=== PATIENT | female | born 1965 | race Two or more races ===

== ENCOUNTER 2024-11-28 11:59 | Emergency (ER) | payer MEDICAID, SELFPAY ==
[2024-11-28 12:58] VITALS: BP 163/84; PULSE 61; RESP 17; TEMP 36.7; O2SAT 97; BMI 26.6
--- NOTE | 2024-11-28 13:05 | XR_ITS ---
Examination: CT abdomen and pelvis without contrast. Coronal 3-D reconstructions. Sagittal 2-D reconstructions. Date and time of exam: November 28, 2024, 1111 hours INDICATIONS: Left-sided abdominal pain radiating to the lower back beginning 1 day ago CTDI: vol (mGy): 7.84 DLP: (mGycm): 440 Technique: Axial images of the abdomen have been obtained, 3 mm slice thickness Intravenous contrast material has not been administered. Low dose protocols were performed. One or more of the following dose reduction techniques were used; automated exposure control, adjustment of the mA and/or KV according to patient size, use of iterative reconstruction technique. Findings: No visualized liver or splenic lesion No gallstones No pancreatic or adrenal mass No renal or ureteral calculi, no hydronephrosis Abdominal aortic calcification no aneurysmal dilatation 15 mm fat-containing umbilical hernia No bowel obstruction No pericecal inflammatory change Normal appendix No diverticulitis Contracted urinary bladder Retroverted uterus, no pelvic mass Grade 1 anterolisthesis L4 on L3 Moderate disc narrowing L4-L5 L5-S1 4 mm central left paracentral disc bulge displacing the left S1 nerve root L4-L5 3 mm central lumbar disc bulge L3-L4 left neural foraminal stenosis secondary to the anterolisthesis with mild left L3 ganglionic compression IMPRESSION: Normal appendix 15 mm fat-containing umbilical hernia No bowel obstruction or diverticulitis L5-S1 4 mm central left paracentral disc bulge displacing the left S1 nerve root L4-L5 3 mm central lumbar disc bulge L3-L4 left neural foraminal stenosis secondary to the anterolisthesis with mild left L3 ganglionic compression, consider elective MRI lumbar spine without contrast follow-up
--- NOTE | 2024-11-28 13:05 | EKG_ITS ---
[facility] Test Date: 2024-11-28 Pat Name: KRISTEN JACOB Department: Room: - Gender: Female Telecom Assistant: : 1965 Requested By: Jhon Ramos (DEMOND) Order Number: [id number] Reading MD: Jhon Ramos (POWER PROJECT MANAGER) Measurements Intervals [place] Rate: 64 P: 49 [place]: 153 QRS: -25 QRSD: 84 T: 33 QT: 413 QTc: 428 Interpretive Statements SINUS RHYTHM BORDERLINE LEFT AXIS DEVIATION [QRS AXIS < -20] MODERATE VOLTAGE CRITERIA FOR LVH, CONSIDER NORMAL VARIANT [MEETS CRITERIA IN ONE OF: R(aVL), S(V1), R(V5), R(V5/V6)+S(V1)] Compared to ECG 08/18/2019 13:15:24 T-wave abnormality no longer present /store/S0/[id number].pdf
--- NOTE | 2024-11-28 13:05 | PD.EDRME ---
Rapid Medical Screening Exam [facility] Arrival date/time: 11/28/24 11:59 59-year-old female presents to the emergency department for complaints of left upper abdominal pain ongoing since yesterday Chief Complaint: Abdominal Pain Vital signs: Vital Signs Temperature 98.0 F 11/28/24 12:58 Pulse Rate 61 11/28/24 12:58 Respiratory Rate 17 11/28/24 12:58 Blood Pressure 163/84 H 11/28/24 12:58 Pulse Oximetry (%) 97 11/28/24 12:58 Oxygen Delivery Method Room Air 11/28/24 12:58
[2024-11-28 13:31] LABS: Basophils # (Auto) 0.1 Thou/mm3 (0.0-0.2); Basophils % (Auto) 1 % (0-2.5); Eosinophils # (Auto) 0.2 Thou/mm3 (0.0-0.5); Eosinophils % (Auto) 2 % (0-10); Hematocrit 40.6 % (36.0-46.0); Hemoglobin 13.4 g/dL (12.0-16.0); Immature Granulocytes Auto 0.02 Thou/mm3 (0.00-0.00); Lymphocytes # (Auto) 2.1 Thou/mm3 (1.0-4.8); Lymphocytes % (Auto) 24 % (10-50); Mean Corpuscular HGB Conc 33.0 g/dl (31.0-37.0); Mean Corpuscular Hemoglobin 28.5 pg (25.0-35.0); Mean Corpuscular Volume 86 fL (80-100); Monocytes # (Auto) 0.4 Thou/mm3 (0.0-0.8); Monocytes % (Auto) 5 % (0-12); Neutrophils # (Auto) 6.1 Thou/mm3 (1.8-7.7); Neutrophils % (Auto) 69 % (37-80); Nucleated Red Blood Cell # 0.00 Thou/mm3 (0.00-0.00); Nucleated Red Blood Cell % 0 /100 WBC (0); Platelet Count 217 Thou/mm3 (140-440); RDW Standard Deviation 40.5 fL (36.4-46.3); Red Blood Count 4.70 Miln/mm3 (4.00-5.20); White Blood Count 8.8 Thou/mm3 (3.6-11.0)
[2024-11-28 13:47] LABS: Alanine Aminotransferase 15 U/L (10-49); Albumin, Serum 4.8 gm/dL (3.4-4.8); Albumin/Globulin Ratio 1.8 (1.2-2.2); Alkaline Phosphatase 128 U/L (46-116); Anion Gap 10 (7-16); Aspartate Amino Transferase 18 U/L (0-34); BUN/Creatinine Ratio 13 Ratio (12-20); Bilirubin,Total 0.5 mg/dL (0.3-1.2); Blood Urea Nitrogen 10 mg/dL (9-23); Calcium 9.4 mg/dL (8.3-10.6); Calcium (Corrected) 9.4 mg/dL (8.5-10.1); Carbon Dioxide 26.8 mMol/L (20.0-31.0); Chloride 106 mMol/L (98-107); Creatinine (Component) 0.8 mg/dL (0.6-1.3); Estimated Creatinine Clearance 77.3 mL/min (>60); Globulin 2.6 gm/dL (2.3-3.5); Glucose 105 mg/dL (74-106); Lipase 39 U/L (12-53); Osmolality,Calculated 283 (275-295); Potassium 3.9 mMol/L (3.4-5.1); Sodium 143 mMol/L (136-145); Total Protein 7.4 gm/dL (5.7-8.2); Troponin I < 0.002 ng/mL (0.0-0.045); eGFR > 60 See Note
[2024-11-28 14:02] LABS: Collection Type, Urine Clean Catch
[2024-11-28 14:20] LABS: Bilirubin,Urine Negative (Negative); Blood,Urine Negative (Negative); Clarity,Urine Clear (Clear/Hazy); Color,Urine Yellow (Lt Yel-Yel); Culture Indicated,Urine Not Indicated; Glucose, Urine Negative (Negative); Ketones,Urine Trace (Negative); Leukocyte Esterase,Urine Positive (Negative); Nitrite,Urine Negative (Negative); PH,Urine 6.0 (5.0-7.0); Protein,Urine Trace (Neg - Trace); RBC,Urine 2 /hpf (0-3); Specific Gravity,Urine 1.032 (1.001-1.035); Squamous Epithelial Cell,Urine 1 /hpf (0-5); Urobilinogen,Urine Negative mg/dL (0.0-1.0); WBC,Urine 3 /hpf (0-5)
--- NOTE | 2024-11-28 16:57 | EDNOTE_ITS ---
ED Abdominal Pain RME/HPI General Chief Complaint: Abdominal Pain Stated complaint: Left upper abdominal pain X 2 days Time seen by provider: 11/28/24 15:44 Arrival date/time: 11/28/24 11:59 Source: patient Mode of arrival: ambulatory Limitations: no limitations RME / HPI RME / HPI narrative: 11/28/24 11:59 59-year-old female presents to the emergency department for complaints of left upper abdominal pain ongoing since yesterday Dr. Omalley evaluation. Patient is a 59-year-old female with medical history notable for hyperlipidemia send Emergency Department concerns for abdominal pain and chest pain. Symptoms have been present for over a day. Denies fevers, chills, nausea, vomiting, cough runny nose, dysuria, hematuria, melena, bloody stools. No drugs no alcohol no smoking. Patient does not take any medications. Pain in her chest is below her left breast Related Data Home Medications ?Medication ?Instructions ?Recorded ?Confirmed Atorvastatin Calcium 10 mg PO HS ##30 06/10/16 Allergies Allergy/AdvReac Type Severity Reaction Status Date / Time NKA* Allergy Uncoded 11/28/24 12:04 ED Exam General Limitations: Present no limitations General appearance: Present alert and in no apparent distress Head Head exam: Present atraumatic and normocephalic Eye Eye exam: Present normal appearance and PERRL ENT ENT exam: Present normal exam and normal oropharynx Neck Neck exam: Present normal inspection and full ROM Chest Chest inspection: Present normal inspection; Absent symmetric chest wall rise Respiratory Respiratory exam: Present normal lung sounds bilaterally; Absent respiratory distress Cardiovascular Cardiovascular exam: Present regular rate and normal rhythm Abdominal Exam Abdominal exam: Present soft; Absent distention, tenderness or guarding Extremities Exam Extremities exam: Present normal inspection Psychiatric Psychiatric exam: Present normal affect Skin Skin exam: Present warm, dry and intact Course Quality Measures none Orders Category Date Time Status EKG (ED ONLY) *Do not use* NOW Care 11/28/24 13:[address] abdomen pelvis wo con Stat Exams 11/28/24 13:05 Completed EKG (ED Only) Stat Exams 11/28/24 13:05 Draft CBC Stat Lab 11/28/24 13:23 Completed Comprehensive Metabolic Panel Stat Lab 11/28/24 13:23 Completed Lipase Stat Lab 11/28/24 13:23 Completed Troponin I Stat Lab 11/28/24 13:23 Completed UA, C/S IF [Urinalysis, C/S if Indicated] Stat Lab 11/28/24 13:56 Completed Urine Culture Stat Lab 11/28/24 17:02 Ordered Vital Signs Vital signs: Vital Signs Temperature 98.0 F 11/28/24 12:58 Pulse Rate 61 11/28/24 12:58 Respiratory Rate 17 11/28/24 12:58 Blood Pressure 163/84 H 11/28/24 12:58 Pulse Oximetry (%) 97 11/28/24 12:58 Oxygen Delivery Method Room Air 11/28/24 12:58 Abdominal Pain MDM MDM Narrative MDM Narrative:: Patient is a 59-year-old female is in the emerged from concerns for abdominal and chest pain. Vital signs and exam as listed. Concern for cholelithiasis, cholecystitis pancreatitis ACS arrhythmia electrolyte abnormality urinary tract infection among others. Prior provider evaluated patient. Ordered labs EKG and CT abdomen pelvis and offered medication for symptom relief. Labs without any acute hematologic or significant metabolic abnormality. Troponin not elevated. EKG performed today at 1316. Notable for sinus rhythm normal intervals, nonspecific T wave changes, not a cardiac alert. Urinalysis nitrate negative, leuk esterase positive, 3 white blood cells, 2 red blood cells, no bacteria. Will send for culture. CT abdomen pelvis without contrast notable for 15 mm fat-containing umbilical hernia, no evidence of acute intra- abdominal pathology. Patient has incidental findings of L5-S1 L4-L5 disc bulges. Patient does not have any evidence of a focal neurodeficit. On reevaluation patient hemodynamically stable not in distress. Symptoms resolved. With regards to patient's chest pain. Patient states that her symptoms have been on and off for over a day. Will discharge to home with close return precautions follow-up with primary doctor as well as recommendation that she gets an appointment to see a support technician that she would benefit from a stress test Patient data External records reviewed:: [facility] previous records Clinical information provided by:: patient Social determinants that could affect healthcare access:: none Patient has the following chronic illnesses:: None How is presenting disease/condition affected by chronic disease/condition?: uneffected by Evaluation data The following diagnostics were reviewed and interpreted by me:: lab results, radiology exam(s) and EKG tracing(s) Lab and/or radiology exams considered but not ordered:: None Interpretation Summary: See MDM Medications / Prescriptions Medications or Prescriptions considered but not ordered:: None Medication administrations:: See above Consultations Consultation(s) initiated? (list below): No Diagnosis Differential diagnosis abdominal pain: other (See MDM) Most likely diagnosis given after review of the tests above:: abdominal pain, chest pain Admission Indicated Admission indicated?: not indicated Admission Request Was there a request for admission?: No Disposition Plan Disposition Plan: Discharge Discharge Attestation Discharge Attestation: The patient and all family members were given an opportunity to ask questions and understood the discharge instructions. Discharge instructions specifically effects, indications for sooner follow up or return to the emergency department, and the expected course of current diagnosis. Patient condition: Stable Discharge Plan Plan Patient Disposition: HOME (Self Care) Prescriptions/Referrals Prescriptions/Med Rec: No Action Atorvastatin Calcium 10 MG tablet 10 mg PO HS Qty: 30 Referrals: No Primary/Family,Physician [Primary Care Provider] - In 1 week Problem List Clinical Impression: Abdominal pain, Chest pain Patient/Caregiver Discharge Instructions Education Materials: Abdominal Pain, ED Chest Pain, Uncertain Cause Additional Instructions: Shanon shant jinny de seguimiento con lima m?dico de atenci?n primaria y regrese de inmediato si los s?ntomas empeoran o aparecen nuevos s?ntomas preocupantes. Por favor pedir jinny con un cardiologo, usted beneficiaria de shant prueba de stress cardiaca. Print Language: Wolof Stand Alone Forms: Kim Award Info., Patient Portal Info Letter
[2024-11-28 17:44] VITALS: BP 152/92; PULSE 60; RESP 16; TEMP 36.7; O2SAT 97
== END 2024-11-28 19:01 | disposition home or self-care (01) ==
PROVIDERS: Nurse Practitioner Primary Care; Emergency Provider Emergency Medicine
DX: R10.9 Unspecified abdominal pain (principal); R07.9 Chest pain, unspecified
CPT/HCPCS: 36415; 74176; 80053; 81001; 83690; 84484; 85025; 87086; 93005; 99283